=== PATIENT | male | born 1945 | race Caucasian/White ===

== ENCOUNTER → 2018-06-09 | Outpatient (CLI) | payer MEDICARE ==
[~2018-06-09] MED LIST: ALLO300T PO; AMLO5TAB7 PO; ATOR10TA9 PO; GEMF600T4 PO; HYDR12.53 PO; LEVO50TA5 PO; TELM80TA PO
== END | disposition home or self-care (01) ==
LOC: CFH 10:25
PROVIDERS: ATTEND Internal Medicine Cardiovascular Disease
DX: I11.9 Hypertensive heart disease without heart failure (principal); I35.8 Other nonrheumatic aortic valve disorders; E78.5 Hyperlipidemia, unspecified
CPT/HCPCS: 93306

== ENCOUNTER → 2020-03-08 | Outpatient (CLI) | payer MEDICARE ==
[~2020-03-08] MED LIST changes: +AMLO-150 PO; -AMLO5TAB7 PO; -GEMF600T4 PO; +GEMF600T8 PO; +HYDR12.517 PO; -HYDR12.53 PO
== END | disposition home or self-care (01) ==
LOC: CFH 12:44
PROVIDERS: ATTEND Internal Medicine Cardiovascular Disease
DX: I08.2 Rheumatic disorders of both aortic and tricuspid valves (principal); I11.9 Hypertensive heart disease without heart failure
CPT/HCPCS: 93306

== ENCOUNTER → 2020-06-06 | Outpatient (CLI) | payer MEDICARE ==
[~2020-06-06] MED LIST changes: +REGADENOSON 0.4 MG/5 ML SYRINGE ONE
== END | disposition home or self-care (01) ==
LOC: CFH 08:13
PROVIDERS: ATTEND Internal Medicine Cardiovascular Disease
DX: I10 Essential (primary) hypertension (principal); R06.02 Shortness of breath
CPT/HCPCS: 78452; 93017; A9502; J2785

== ENCOUNTER 2020-12-07 07:47 | Day surgery (SDC) | payer MEDICARE ==
[~2020-12-07] VITALS: Ht 177.8 cm; Wt 85.0 kg
[~2020-12-07 07:47] MED LIST changes: +GEMF-31 PO; -GEMF600T8 PO; -REGADENOSON 0.4 MG/5 ML SYRINGE ONE
[2020-12-07] MEDS ORDERED: FENTANYL PF 100 MCG/2ML ONE ×2 (08:36→12:54)
[2020-12-07] MEDS ORDERED: MIDAZOLAM 1 MG/ML, 5ML ONE ×2 (08:36→12:54)
[2020-12-07] MEDS ORDERED: LIDOCAINE 2%, 20ML ONE (08:36)
[2020-12-07] MEDS ORDERED: DIPHENHYDRAMINE 50 MG/ML, 1ML ONE (08:39)
[2020-12-07] MEDS ORDERED: methylPREDNISolone SOD SUCC 125 MG/2 ML ONE (08:39)
[2020-12-07 08:40] VITALS: BP 137/80
[2020-12-07] MEDS ORDERED: ATOR10TA9 PO (08:48)
[2020-12-07] MEDS ORDERED: LEVO75TA5 PO (08:49)
[2020-12-07] MEDS ORDERED: HYDR25TA6 PO (08:50)
[2020-12-07] MEDS ORDERED: ASPI-963 PO (08:51)
[2020-12-07] MEDS ORDERED: INDO75CA3 PO (08:52)
[2020-12-07] MEDS ORDERED: GABA-826 PO (08:53)
[2020-12-07] MEDS ORDERED: methylPREDNISolone SOD SUCC 125 MG/2 ML IVPush ONE (09:00)
[2020-12-07] MEDS ORDERED: DIPHENHYDRAMINE 50 MG/ML, 1ML IVPush ONE (09:00)
[2020-12-07 09:01] LABS: ANION GAP 8 mmol/L (5-15); CALCIUM 8.9 mg/dL (8.5-10.1); CHLORIDE 112 mmol/L (98-107); CREATININE 1.25 mg/dL (0.7-1.3)
[2020-12-07 09:02] LABS: BASOPHILS % (AUTO) 1 % (0-1); EOSINOPHILS % (AUTO) 3 % (1-7); LYMPHOCYTES % (AUTO) 20 % (22-44); MEAN CORPUSCULAR HEMOGLOBIN 26.8 pg (27.5-34.5); MEAN CORPUSCULAR HGB CONC 32.2 g/dL (33.2-36.2); MEAN PLATELET VOLUME 9.3 fL (7.4-10.4); MONOCYTES % (AUTO) 10 % (2-9); NEUTROPHILS % (AUTO) 67 % (42-75); PLATELET COUNT 172 x10^3/uL (130-400); RED BLOOD COUNT 5.34 x10^6/uL (4.38-5.82); RED CELL DISTRIBUTION WIDTH 15.3 % (9.4-14.8)
[2020-12-07 09:04] LABS: MD NO
[2020-12-07 09:35] LABS: INTERNATIONAL NORMALIZED RATIO 1.1 (0.93-1.1); PROTHROMBIN TIME 11.7 Seconds (9.6-11.5)
[2020-12-07] MEDS ORDERED: SODIUM CHLORIDE 0.9% 1,000 ML IV SCH ×2 (11:00→14:00)
[2020-12-07] MEDS ORDERED: LIDOCAINE 1%, 20ML ONE (12:54)
[2020-12-07] MEDS ORDERED: BIVALIRUDIN 250 MG ONE (12:54)
[2020-12-07] MEDS ORDERED: TICAGRELOR 90 MG TABLET ONE (12:54)
[2020-12-07] MEDS ORDERED: HEPARIN 1,000 UNITS/ML, 10ML ONE (12:56)
== END 2020-12-07 16:30 | disposition home or self-care (01) ==
LOC: CACL 07:47
PROVIDERS: ATTEND Internal Medicine Cardiovascular Disease
DX: R94.39 Abnormal result of other cardiovascular function study (principal); I25.10 Atherosclerotic heart disease of native coronary artery without angina pectoris; I25.83 Coronary atherosclerosis due to lipid rich plaque; I25.84 Coronary atherosclerosis due to calcified coronary lesion; I12.9 Hypertensive chronic kidney disease with stage 1 through stage 4 chronic kidney disease, or unspecified chronic kidney disease; N18.30 Chronic kidney disease, stage 3 unspecified; I42.9 Cardiomyopathy, unspecified; E78.5 Hyperlipidemia, unspecified; E55.9 Vitamin D deficiency, unspecified; E66.3 Overweight; Z68.26 Body mass index [BMI] 26.0-26.9, adult; Z79.82 Long term (current) use of aspirin; Z79.890 Hormone replacement therapy; Z79.899 Other long term (current) drug therapy; Z91.013 Allergy to seafood; Z91.041 Radiographic dye allergy status; Z98.890 Other specified postprocedural states
CPT/HCPCS: 36415; 80048; 85025; 85610; 93454; 93458; 93571; 99156; C1760; C1769; C1887; C1894; J0583; J1200; J1644; J2250; J2930; J3010; Q9967